=== PATIENT | female | born 1970 | race Caucasian/White ===

== ENCOUNTER → 2023-07-25 03:23 | Outpatient (CLI) | payer MEDICARE, MEDICAID, SELFPAY ==
--- NOTE | 2023-07-25 14:19 | ST.MBS_ITS ---
Date of Service Date of service: 07/25/23 Time of Service: 14:19 Modified Barium Swallow Study Findings: Video fluoroscopic Swallowing Evaluation (VFSE) / Modified Barium Swallow Study (MBSS) Speech Language Pathology Report Patient referred for VFSE/MBSS from Dr. Ghotra given complaint of pharyngeal stasis with associated dyspnea. HPI & Patient report of function: Patient is a 52 year old F with hx hiatal hernia, fibromyalgia who presents today for instrumental swallow exam due to recent report to her PCP of food sticking in her throat. Patient also reports on date of exam: coughing/sputtering occasionally on her own saliva, sometimes also when drinking liquids. Solids can also make her cough, and often feel stuck in the throat. She does frequently feel globus sensation outside of mealtimes. She does endorse reflux and her also tells her that she coughs a lot in her sleep overnight but she has no awareness of this. She is edentulous without dentures, avoids particularly fibrous foods (e.g., raw carrots, nuts, etc) but she otherwise has no problem chewing solids (she says she can bite into an apple, for example). All Active Problems (Updated 07/05/23 @ 11:27 by Deny Ghotra DO) Mechanical dysphagia (Acute) Deviated septum (Acute) Dyssynergic defecation (Acute) Hiatal hernia (Chronic) Degenerative disc disease, lumbar (Acute) Fibromyalgia (Acute) Hyperlipidemia (Acute) Essential hypertension (Acute) Medical History (Updated 07/05/23 @ 11:27 by Deny Ghotra DO) Endometriosis S/p hysterectomy Surgical History (Updated 02/26/23 @ 17:13 by Geovanna Yo) History of hysterectomy IMPRESSIONS: Swallow safety is preserved; swallow efficiency is preserved. Overall swallow motor function appears safe/WFL aside from oral phase difficulty in setting of edentulousness and reduced alveolar ridge impacting oral transit especially for solids. Only flash penetration occurred (normal finding) and no aspiration. Barium tablet transited the pharynx and UES quickly. Anatomy not consistent with appearance of cricopharyngeal abnormality. However, there is question of some supra-glottic or sub-epiglottic anatomical difference which may warrant further evaluation by ENT. In the absence of any laryngeal/pharyngeal anatomical issues, her difficulty swallowing would likely be a sensory dysphagia possibly due to referred sensation (e.g., esophageal impairments) or due to irritation from laryngo-pharyngeal reflux and resultant tension). Diet modification is indicated only for ease of mastication. Specialist referrals:? ENT, GI ? No further TRAFFIC SUPERVISOR services are indicated at this time. Reflux counseling given. RECOMMENDATIONS: Diet Texture Recommendation:? IDDSI LEVEL SOLIDS 7-Regular/Easy to Chew Solids LIQUIDS 0-Thin Liquids Please see further details at?[email or web address].org MEDICATIONS Whole with 0 - Thin Liquids Do not alter medications (e.g., cut)? without advice from your MD or pharmacist. Risk Management Strategies:? Behavioral reflux precautions, including upright position during + 90 mins after meals. Small bites, approx [id number] Alternate solids/liquids as able Control risk factors for aspiration pneumonia via (a) thorough oral hygiene & (b) maintaining physical mobility as tolerated PLAN: No further TRAFFIC SUPERVISOR services are indicated at this time. ----- OBJECTIVE Oral-Motor/Peripheral Screening completed and without noteworthy results aside from edentulousness. Videofluoroscopic Swallow Evaluation (VFSE/MBSS) was conducted in the lateral and [id number] projection by Speech-Language Pathologist, in collaboration with Radiologist, to evaluate oropharyngeal swallow function. Anatomic view under fluoroscopy: WFL PO Barium Contrast Trials Oral barium water-soluble contrast was administered as follows: IDDSI Level 0 Varibar thin liquid (40% w/v) IDDSI Level 2 Varibar nectar thick/mildly thick liquid (40% w/v) IDDSI Level 4 Varibar pudding/pureed/extremely thick (40% w/v) IDDSI Level 7 Regular Solid: 1/2 nancy cracker coated in 3 mL Varibar pudding 13 mm barium tablet taken with Level 0 Thin Liquids (water) MBSImP Component Scores: COMPONENT Scale SCORE 1 Lip closure (0-4) 0 Resulted in no labial escape 2 Hold Position (0-3) 0 Maintained a cohesive bolus between tongue to palatal seal 3 Bolus Preparation (0-4) 2 Demonstrated disorganized chewing/mashing with tyler id pieces of bolus unchewed 4 Bolus Transport (0-4) 0 Was with brisk tongue motion 5 Oral Residue (0-4) 2 Was a collection on oral structures 6 Swallow Initiation (0-4) 2 Occurred as bolus head at posterior laryngeal surface of epiglottis 7 Soft Palate Elevation (0-4) 0 Resulted in no bolus between soft palate and t he pharyngeal wall 8 Laryngeal Elevation (0-3) 1 Was decreased with partial superior movement of thyroid cartilage/partial approximation of arytenoids to epiglottic petiole 9 Anterior Hyoid Motion (0-2) 0 Demonstrated complete anterior movement 10 Epiglottic Movement (0-2) 0 Resulted in complete inversion 11 Laryngeal Closure (0-2) 0 Was complete with no air or contrast in laryngeal vestibule 12 Pharyngeal Stripping Wave (0-2) 0 Was present and complete 13 Pharyngeal Contraction (0-3) 0 Was complete 14 PES Opening (0-3) 0 Was completely distended and complete duration with no obstruction of flow 15 Tongue Base Retraction (0-4) 1 Allowed a trace column of contrast or air between tongue base and pharyngeal wall 16 Pharyngeal Residue (0-4) 1 Showed a trace within or on pharyngeal structure s 17 Esophageal Clearance (0-4) 0 Was complete, with only a coating of contrast, if any Results: COMPONENT Scale SCORE 1 Oral Score (0-18) 6 2 Pharyngeal Score (0-29) 1 3 Esophageal Score (0-4) 0 Penetration-Aspiration Scale: COMPONENT Scale SCORE 1 Thin liquid (1-8) 2 Contrast entered the airway, remained above the vocal folds, and was ejected from the airway. 2 Datil thick (1-8) 1 Contrast did not enter the airway 3 Honey thick (1-8) NA 4 Pudding thick (1-8) 1 Contrast did not enter the airway 5 Cookie (1-8) 1 Contrast did not enter the airway Observations not captured in quantitative data: Trialed Compensatory Strategies & Outcome: Maneuvers Successful (+) Unsuccessful (-) Postures Successful (+) Unsuccessful (-) 3 second Preparatory Set? ?+/- Chin Tuck Posture? ? Cough? ? Posterior Head tilt? Reflexive? Cued? Throat Clear? ? Head Tilt to? Reflexive? Left? Cued? Right? ? Saliva swallow? ?+ Head Turn/Rotate to? ? Supraglottic Swallow? Left? ? Super-supraglottic Swallow? Right? ? Bolus Modifications Successful (+) Unsuccessful (-) Delivery/Alternating Consistencies ? Follow with Liquid Wash + ? Follow with Solid Bolus? Delivery/Via Straw? ? Reduced Volume? ?+/- Reduced Rate of Intake? ? Increased Viscosity? ?+/- Other:?? ? Thank you for allowing us to take part in this patient's care. Please feel free to contact the [facility] Speech Language Pathology Department with any questions/concerns.
--- NOTE | 2023-07-25 15:05 | DI.RAD_ITS ---
Exam(s) RF MODIFIED SPEECH BA SWALLOW TECHNIQUE: Modified barium swallow was performed in conjunction with speech pathology. CONTRAST MATERIAL: Oral barium contrast was administered. COMPARISON: No exams were available for comparison FINDINGS: Note that this is not a dedicated esophagram, distal esophagus not evaluated. There is no evidence of aspiration of thin liquids, barium coated cookie, or barium paste. Speech pa thology report to follow. There was penetration seen during the swallow during the examination. IMPRESSION: No evidence of aspiration. RADIATION DOSE DELIVERED: funmilayo Pack=8.20 mGy
[2023-07-25] MEDS: Barium Sulfate Oral Paste 40% W/V 230 ML TUBE PO (15:12)
[2023-07-25] MEDS: Barium Sulfate 700 MG TAB PO (15:12)
[2023-07-25] MEDS: Barium Sulfate 40% W/V 240 ML BTL PO (15:13)
[2023-07-25] MEDS: Barium Sulfate 81% w/w for Oral Suspension 148 GM BTL PO (15:13)
== END ==
PROVIDERS: PCP Family Medicine; Visit Provider Family Medicine
DX: R13.19 Other dysphagia (principal)
CPT/HCPCS: 92526; 74221

== ENCOUNTER → 2023-07-30 04:13 | Outpatient (CLI) | payer MEDICARE, MEDICAID, SELFPAY ==
--- NOTE | 2023-07-30 14:30 | DI.RAD_ITS ---
Exam(s) XR SHOULDER RT COMPLETE 2+V EXAM: XR SHOULDER RT COMPLETE 2+V CLINICAL HISTORY: Chronic R shoulder pain,m25.50. TECHNIQUE: 2D digital imaging was performed. COMPARISON: No exams were available for comparison FINDINGS: Five views. There is no evidence of fracture or dislocation. No diminution of the subacromial space. There are multiple calcific densities around the humeral head. These may represent loose intra-artic ular for para-articular bodies. No degenerative changes noted in the glenohumeral joint. AC joint a ppears unremarkable. IMPRESSION: Multiple calcifications around the humeral head which are probably intra-articular. DATA REPOSITORY: RADIATION DOSE DELIVERED:
--- NOTE | 2023-07-30 14:31 | DI.RAD_ITS ---
Exam(s) XR LUMBAR SPINE COMPLETE EXAM: XR LUMBAR SPINE COMPLETE CLINICAL HISTORY: Low back pain,degenerative disc disease,lumbar,m51.36. TECHNIQUE: 2D digital imaging was performed. COMPARISON: No exams were available for comparison FINDINGS: Five views. No evidence of fracture, listhesis, nor pars defects. There is mild narrowing of the L5-S1 disc spac e. Anterior osseous lipping at L 3-4. No obvious facet arthropathy. Sacroiliac joints appear unrem arkable. No scoliosis. Bone density normal. IMPRESSION: Mild-moderate disc space narrowing at L5-S1 level noted DATA REPOSITORY: RADIATION DOSE DELIVERED:
== END ==
PROVIDERS: PCP Family Medicine; Visit Provider Family Medicine
DX: M25.511 Pain in right shoulder (principal); M51.36 Other intervertebral disc degeneration, lumbar region
CPT/HCPCS: 72110; 73030

== ENCOUNTER 2023-08-07 05:01 | Outpatient (CLI) | payer MEDICARE, MEDICAID, SELFPAY ==
[2023-08-08 11:41] LABS: Lyme Ab w Rflx to Lyme Confirm Negative (Negative)
[2023-08-10 19:25] LABS: Anaplasma phagocytophilum Negative (Negative); B. miyamotoi PCR Negative (Negative); Babesia divergens/MO-1 Negative (Negative); Babesia duncani Negative (Negative); Babesia microti Negative (Negative); Ehrlichia chaffeensis Negative (Negative); Ehrlichia ewingii/canis Negative (Negative); Ehrlichia muris eauclairensis Negative (Negative)
== END 2023-08-07 05:02 | disposition home or self-care (01) ==
LOC: LBO 05:01
PROVIDERS: PCP Family Medicine; Visit Provider Family Medicine
DX: M25.59 Pain in other specified joint (principal)
CPT/HCPCS: 36415; 87798; 86618

== ENCOUNTER → 2023-10-16 09:08 | Outpatient (BNVA) | payer MEDICARE, MEDICAID, SELFPAY | PROVIDERS: PCP Family Medicine; Referring Provider Family Medicine; Visit Provider Student in an Organized Health Care Education/Training Program | DX: M75.31 Calcific tendinitis of right shoulder (principal) | CPT/HCPCS: 99203 ==

== ENCOUNTER 2023-11-06 01:08 | Outpatient (CLI) | payer MEDICARE, MEDICAID, SELFPAY ==
--- NOTE | 2023-11-06 09:45 | DI.MRI_ITS ---
Exam(s) MR UPPER JOINT RT WO EXAM: MR UPPER JOINT RT WO CLINICAL HISTORY: R SHOULDER PAIN,CALCIFIC TENDONITIS,M75.31. TECHNIQUE: Multiplanar multisequence MRI was performed. COMPARISON: Plain films 30 July 2023 FINDINGS: BONES: There is no fracture or contusion pattern. Tiny degenerative cyst in the humeral head. JOINTS:The acromioclavicular joint shows mild degenerative change the glenohumeral joint is normal. Minimal joint fluid. No loose bodies. TENDONS: Supraspinatus: Mild tendon thickening. Calcifications seen distally. No visible tear. Infraspinatus: Unremarkable. Subscapularis: 2 calcifications are noted in the distal subscapularis muscle. No evidence of tendon tear. [place]: Unremarkable. Biceps and [place]: Unremarkable. MUSCLES: Unremarkable. GLENOID LABRUM: Tear of the anterosuperior labrum. Elongated paralabral cyst seen extent anterior to glenoid, measuring 0.5 by 2.5 cm in length. SOFT TISSUES: Unremarkable. OTHER: Subacromial and subdeltoid bursae shows trace fluid. Small fluid in subcoracoid bursa.. IMPRESSION: Calcific tendinosis of the sub scapularis and supraspinatus. Tear of the anterosuperior labrum and small adjacent and labral cyst. DATA REPOSITORY:
== END 2023-11-06 01:28 ==
LOC: DI 01:09
PROVIDERS: PCP Family Medicine; Visit Provider Student in an Organized Health Care Education/Training Program
DX: M75.31 Calcific tendinitis of right shoulder (principal)
CPT/HCPCS: 73221

== ENCOUNTER → 2023-11-14 13:35 | Outpatient (BNVA) | payer MEDICARE, MEDICAID, SELFPAY | PROVIDERS: PCP Family Medicine; Referring Provider Family Medicine; Visit Provider Student in an Organized Health Care Education/Training Program | DX: M75.31 Calcific tendinitis of right shoulder (principal) | CPT/HCPCS: 20610; J1010 ==

== ENCOUNTER 2023-12-21 02:32 | Outpatient (CLI) | payer MEDICARE, MEDICAID, SELFPAY ==
[2023-12-21 15:17] LABS: C-Reactive Protein < 0.50 mg/dL (<or=0.5)
[2023-12-24 10:15] LABS: Cyclic Citrullinated Peptide <2.5 U/mL (<5.0)
[2023-12-24 13:19] LABS: ANA Interpretation Positive (Negative); ANA Titer Pattern 1:320 Homogeneous
== END 2023-12-21 02:33 | disposition home or self-care (01) ==
LOC: LBO 02:33
PROVIDERS: PCP Family Medicine; Referring Provider Family Medicine; Visit Provider Family Medicine
DX: M13.0 Polyarthritis, unspecified (principal); Z23 Encounter for immunization; M75.31 Calcific tendinitis of right shoulder
CPT/HCPCS: 36415; 86200; 86038; 86140

== ENCOUNTER 2024-02-28 03:43 | Outpatient (CLI) | payer MEDICARE, MEDICAID, SELFPAY ==
--- NOTE | 2024-02-28 | DI.US_ITS ---
Exam(s) MAMMO DIAGNOSTIC BI US BREAST LT LIMITED EXAM: MAMMO DIAGNOSTIC BI and U/S breast LT limited CLINICAL HISTORY: left breast pain,n64.4. TECHNIQUE: Craniocaudal and mediolateral oblique Full Field Digital Mammography views with Computer Aided Diagnosis followed by Tomosynthesis and limited left breast ultrasound. COMPARISON: There are no priors examinations at this time for comparison. Should they become availa ble, an addendum will be issued at that time. FINDINGS: Mammography/Tomosynthesis: Masses/Architectural Distortion: None seen. Microcalcifictions: No suspicious pleomorphic-type are seen. Skin Thickening/Nipple Retraction: None. Limited left breast US: Echotexture: Normal appearance of the glandular tissue. Shadowing: No suspicious foci. Cyst: There is a simple 0.5 cm cyst at the 2 o'clock position of the left breast 4 cm from the nipple . Solid lesions: None seen. Ductal dilation: None. IMPRESSION: 1. No evidence of malignancy is noted. 2. Unless there is more urgent need, follow-up screening mammography is recommended, as per [place] [employer] guidelines. 3. The findings were discussed with the patient on the date of the examination. BI-RADS Category 2 - Benign Findings Breast Density - Category C - Heterogeneously dense Breast density Category C or D implies that the patient has dense breast tissue. Dense breast tissue can make it harder to find cancer on a mammogram. Dense breast tissue is also associated with an incr eased risk of breast cancer. This information about the result of the mammogram report was provided to the patient to raise their awareness. Use this report when you speak with the patient about their risks for breast cancer, which includes their family history. At that time, you may recommend additional screening tests (Ultrasoun d or MRI) as these tests may add significant information. A negative radiographic report should not delay biopsy if a dominant or clinically suspicious mass is present. Up to ten percent of cancers are not identified on mammography. A negative report may reinforce clinical impression. Adenosis and dense breasts may obscure an underlying neoplasm. False positive reports average 6 to 10%. Patient will receive a letter notifying them of these results.
== END 2024-02-28 04:03 ==
LOC: DI 03:43
PROVIDERS: PCP Family Medicine; Visit Provider Emergency Medicine
DX: N64.4 Mastodynia (principal); R92.8 Other abnormal and inconclusive findings on diagnostic imaging of breast
CPT/HCPCS: 76642; 77062; 77066; G0279

== ENCOUNTER 2024-09-19 09:53 | Outpatient (CLI) | payer MEDICARE, MEDICAID, SELFPAY ==
[2024-09-19 10:01] LABS: HCT 39.7 % (36.0-46.0); HGB 13.2 g/dL (11.2-15.7); MCH 28.4 pg (27.0-33.0); MCHC 33.2 % (32.0-36.0); MCV 85 fL (80-95); MPV 10.3 fL (8.0-11.0); Platelet Count 295 10^3/uL (130-400); RBC 4.65 10^6/uL (3.93-5.22); RDW 15.5 % (11.7-14.6); RDW-SD 47.8 fL; WBC 6.01 10^3/uL (4.4-10.8)
== END 2024-09-19 09:54 | disposition home or self-care (01) ==
PROVIDERS: PCP Family Medicine; Visit Provider Family Medicine
DX: K21.9 Gastro-esophageal reflux disease without esophagitis (principal)
CPT/HCPCS: 36415; 85027

== ENCOUNTER 2024-12-01 02:42 | Outpatient (CLI) | payer MEDICARE, MEDICAID, SELFPAY ==
--- NOTE | 2024-12-01 05:15 | ETT_ITS ---
APPROVED REPORT Exam: Exercise Treadmill Patient Location: Out-Patient Room/Bed: Stress Nurse: Nettie Reese RN Ordering Provider:RUSLAN MULLINS, Contact Number: [phone] BMI: 26.07 Baseline Rhythm: Sinus Rhythm Indications: Angina pectoris Medical History Medical History: HTN, HLD, fibromyalgia, opiate use Cardiac Medications: Aspirin, hydromorphone, lisinopril, omeprazole, rosuvasatin, sucralfate Allergies: Bee pollen, egg, sulfa Cardiac Risk Factors: Family hx, HTN, HLD, smoker Previous Cardiac Procedures: None Pretest Chest Pain Characteristics: 7-7.5/10 chest pain (unable to describe) Exercise History: Indeterminate Physical Disabilities: None Lung Sounds: Clear to auscultation Heart Sounds: Regular Stress Test Details Test: Exercise stress testing was performed using a Brandon protocol. Rest Stress HR Resting HR Supine: 70 bpm Max Heart Rate (APMHR): 165 bpm Resting HR Standin bpm Target HR (85% APMHR): 140 bpm Max HR Achieved: 154 bpm % of APMHR: 93 Recovery HR: 75 bpm HR response to stress: Accelerated HR response to stress BP Resting BP Supine: 96/56 mmHg Resting BP Standin/62 mmHg Max BP: 132/58 mmHg Recovery BP: 100/58 mmHg BP response to stress: Normal blood pressure response to stress. ECG Resting ECG: Sinus Rhythm Ectopy: None Stress ECG: Sinus Tachycardia ST Change: No significant ST segment changes noted Arrhythmia: None Recovery ECG: Sinus Rhythm Recovery ST Change: No significant ST segment changes noted Recovery Arrhythmia: None Clinical Reason for Termination: Fatigue, Dyspnea Stress Symptoms: Mod SOB, 8/10 neck and chest pain, leg fatigue Exercise duration: 02 min02 sec Highest Stage Reached: Stage 1: 1.7 mph at 10% grade. Exercise capacity: 4.64 METs Angina Score: Non-Limiting Rate Pressure Product: [id number] Stress ECG Conclusion 1. Resting electrocardiogram was normal 2. Patient exercised on the Brandon protocol for 2 minutes, a workload of 4 METS. Poor exercise capacity 3. Normal blood pressure response to exercise. Rapid heart rate rise with activity suggests deconditioning. Peak heart rate achieved was 93% of maximal predicted for age 4. There was no electrocardiographic evidence of myocardial ischemia 5. There were no dysrhythmias Stress Test Summary STAGE Time (mins) Speed (mph) Grade (%) HR BP SpO2 SYMPTOMS METS Supine 70 96/56 96% Baseline chest pain 7-7.5/10 Standing 82 112/62 1 3 1.7 10 152 98% Mod SOB, leg fatigue, 8/10 chst/neck pain 4.5 2 6 2.5 12 121 132/58 7 3 9 3.4 14 77 108/52 96% 10 4 12 4.2 16 75 100/58 96% Chest pain back to baseline (7-7.5/10) , all other symptoms resolved. 13 Patient requested to stop treadmill r/t mod SOB and leg fatigue. Target HR achieved. C/O 7-7.5/10 chest pain at baseline. C/O Mod SOB, leg fatigue and 8/10 chest and neck pain during test. Chest pain back to 7-7.5/10 and provider Goldy updated prior to starting test opf patients basleine chest pain. SOB and leg fatigue resolved and patient left ambulatory in no apparent distress.
== END 2024-12-01 03:02 ==
LOC: DI 02:42
PROVIDERS: PCP Family Medicine; Visit Provider Internal Medicine Cardiovascular Disease
DX: I20.9 Angina pectoris, unspecified (principal)
CPT/HCPCS: 93306; 93017